=== PATIENT | female | born 1955 | race Caucasian/White ===

== ENCOUNTER → 2017-11-24 | Outpatient (CLI) | payer OTHER ==
[2017-11-24 19:56] LABS: Basophils % (A) 1 %; Eosinophils # (A) 0.1 k/uL (0-0.7); Eosinophils % (A) 2 %; HCT 44.6 % (34.0-46.0); HGB 13.8 gm/dL (11.4-16.0); Hypochromasia Slight; Lymphocytes # (A) 1.5 k/uL (1.0-4.8); Lymphocytes % (A) 21 %; MCV 96.6 fL (80.0-100.0); Mean Platelet Volume 8.5; Monocytes # (A) 0.4 k/uL (0-1.0); Monocytes % (A) 5 %; Neutrophils # (A) 5.1 k/uL (1.3-7.7); Neutrophils % (A) 71 %; Platelet Count 269 k/uL (150-450); RBC 4.62 m/uL (3.80-5.40); RDW 14.3 % (11.5-15.5); WBC 7.2 k/uL (3.8-10.6)
[2017-11-24 20:35] LABS: T4, Free (Free Thyroxine) 1.21 ng/dL (0.78-2.19)
[2017-11-24 20:50] LABS: ALT 29 U/L (9-52); AST 26 U/L (14-36); Albumin 4.3 g/dL (3.5-5.0); Alkaline Phosphatase 108 U/L (38-126); Anion Gap 12 mmol/L; Blood Urea Nitrogen 17 mg/dL (7-17); Calcium 9.8 mg/dL (8.4-10.2); Carbon Dioxide 29 mmol/L (22-30); Chloride 101 mmol/L (98-107); Cholesterol 168 mg/dL (<200); Creatine Kinase 56 U/L (30-135); Glucose 103 mg/dL (74-99); HDL Cholesterol 50 mg/dL (40-60); LDL Cholesterol,Calculated 104 mg/dL (0-99); Potassium 4.8 mmol/L (3.5-5.1); Sodium 142 mmol/L (137-145); Total Bilirubin 0.4 mg/dL (0.2-1.3); Total Protein 7.5 g/dL (6.3-8.2); Triglycerides 72 mg/dL (<150)
[2017-11-25 01:46] LABS: Vitamin D 25 Hydroxy 31.7 ng/mL (30.0-100.0)
== END | disposition home or self-care (01) ==
LOC: MMGSC 11:50
PROVIDERS: ATTEND Family Medicine
DX: E03.9 Hypothyroidism, unspecified (principal); I10 Essential (primary) hypertension; E78.5 Hyperlipidemia, unspecified; M79.1 Myalgia
CPT/HCPCS: 36415; 80053; 80061; 82306; 82550; 82607; 84439; 84443; 85025

== ENCOUNTER 2018-07-27 16:00 | Inpatient (IN) | payer OTHER ==
--- NOTE | 2018-07-27 15:48 | CT ---
EXAMINATION TYPE: CT abdomen pelvis w con DATE OF EXAM: 07/27/2018 COMPARISON: HISTORY: Right lower quadrant pain. CT DLP: 1580 mGycm CONTRAST: CT scan of the abdomen and pelvis is performed with Oral Contrast and with IV Contrast, patient injec charlee with 100 mL of Isovue M300. FINDINGS: LUNG BASES-: No visible nodule. No infiltrate. LIVER/GB: No calcified gallstones. No space occupying hepatic lesion. Biliary tree is of normal ca liber. PANCREAS: No inflammation. No distinct mass. SPLEEN: No splenic enlargement. No lesion seen. ADRENALS: No nodule. No thickening. KIDNEYS/BLADDER: No hydronephrosis. No nephrolithiasis. No distinct renal mass. Urinary bladder g rossly unremarkable. BOWEL: There is evidence of acute appendicitis with abscess formation within the right lower quadrant measuring approximately 6.4 x 6.2 cm. There is wall thickening of the adjacent ileal loops. Wall thi ckening and irregularity of the appendix noted. No evidence for free air at this time. GENITAL ORGANS: No gross abnormality. LYMPH NODES: No greater than 1cm abdominal or pelvic lymph nodes are appreciated. AORTA: No significant abnormality. OSSEOUS STRUCTURES: No significant abnormality is seen. OTHER: No significant additional abnormality is seen. IMPRESSION: 1. There is evidence of acute appendicitis with abscess formation within the right lower quadrant ephraim suring approximately 6.4 x 6.2 cm.
[2018-07-27] MEDS ORDERED: SODIUM CHLORIDE 0.9% 1,000 ML IV STA (16:20)
[2018-07-27] MEDS ORDERED: PIPERACILLIN-TAZOBACTAM 3.375 GM in DEXTROSE/WATER 1 50ML.BAG IVPB STA (16:20)
--- NOTE | 2018-07-27 16:25 | ED ---
General Adult HPI - General Chief complaint: Abdominal Pain Time Seen by Provider: 07/27/18 16:00 Source: patient, RN notes reviewed Mode of arrival: ambulatory Limitations: no limitations - History of Present Illness Initial comments: This is a 63-year-old female presents emergency department with 4 day history of abdominal pain patient states it started on Wednesday and continues getting worse. Patient states he was kind of diffuse along her lower abdomen now it's more localized in the right lower quadrant. Patient denies any nausea vomiting. Patient denies any diarrhea. Patient denies any fever chills. Patient denies any dysuria hematuria urinary frequency. Patient states she went to her doctor's today doctor ordered a CAT scan and she was sent to the hospital for the CAT scan after she was done I told she had acute appendicitis and he comes emergency Department. - Related Data Allergies Allergy/AdvReac Type Severity Reaction Status Date / Time No Known Allergies Allergy Verified 07/27/18 16:04 Review of Systems ROS Statement: Those systems with pertinent positive or pertinent negative responses have been documented in the HPI. ROS Other: All systems not noted in ROS Statement are negative. Past Medical History Past Medical History: Hypertension, Thyroid Disorder History of Any Multi-Drug Resistant Organisms: None Reported Past Surgical History: No Surgical Hx Reported Past Psychological History: Anxiety Smoking Status: Never smoker Past Alcohol Use History: None Reported Past Drug Use History: None Reported General Exam - General Exam Comments Initial Comments: GENERAL: Patient is well-developed and well-nourished. Patient is nontoxic and well- hydrated and is in mild distress. ENT: Neck is soft and supple. No significant lymphadenopathy is noted. Oropharynx is clear. Moist mucous membranes. Neck has full range of motion without eliciting any pain. EYES: The sclera were anicteric and conjunctiva were pink and moist. Extraocular movements were intact and pupils were equal round and reactive to light. Eyelids were unremarkable. PULMONARY: Unlabored respirations. Good breath sounds bilaterally. No audible rales rhonchi or wheezing was noted. CARDIOVASCULAR: There is a regular rate and rhythm without any murmurs gallops or rubs. ABDOMEN: Patient is right lower quadrant tenderness with rebound. No palpable organomegaly was noted. There is no palpable pulsatile mass. SKIN: Skin is clear with no lesions or rashes and otherwise unremarkable. NEUROLOGIC: Patient is alert and oriented x3. Cranial nerves II through XII are grossly intact. Motor and sensory are also intact. Normal speech, volume and content. Symmetrical smile. MUSCULOSKELETAL: Normal extremities with adequate strength and full range of motion. No lower extremity swelling or edema. No calf tenderness. LYMPHATICS: No significant lymphadenopathy is noted PSYCHIATRIC: Normal psychiatric evaluation. Limitations: no limitations Course Vital Signs 07/27/18 16:00 Temperature 97.6 F Pulse Rate 96 Respiratory 18 Rate Blood Pressure 106/67 O2 Sat by Pulse 95 Oximetry Medical Decision Making - Medical Decision Making CAT scan shows acute appendicitis with abscess formation. I spoke with Dr. Calhoun she wanted the patient admitted I admitted the patient I gave Zosyn in the emergency department continue Zosyn on the floor. EKG shows normal sinus rhythm at 87 bpm NM interval 266 dresses 88 QT interval 372 QTC is 447. Patient's EKG shows no ST segment elevation or depression or T wave abnormalities are noted. Disposition Clinical Impression: Acute appendicitis Disposition: ADMITTED IP TO THIS HOSP Referrals: Tyra Upton MD [Primary Care Provider] - 1-2 days Time of Disposition: 16:43
[2018-07-27] MEDS ORDERED: SODIUM CHLORIDE 0.9% 1,000 ML IV ONE (16:43)
[2018-07-27] MEDS ORDERED: ONDANSETRON 4 MG/2 ML VIAL IVP PRN (16:44)
[2018-07-27 17:01] LABS: Basophils # (A) 0.1 k/uL (0-0.2); Basophils % (A) 1 %; Eosinophils # (A) 0.1 k/uL (0-0.7); Eosinophils % (A) 0 %; HCT 40.2 % (34.0-46.0); HGB 13.1 gm/dL (11.4-16.0); Lymphocytes # (A) 1.3 k/uL (1.0-4.8); Lymphocytes % (A) 8 %; MCH 30.1 pg (25.0-35.0); MCHC 32.6 g/dL (31.0-37.0); MCV 92.1 fL (80.0-100.0); Mean Platelet Volume 6.5; Monocytes # (A) 0.8 k/uL (0-1.0); Monocytes % (A) 5 %; Neutrophils # (A) 13.5 k/uL (1.3-7.7); Neutrophils % (A) 84 %; Platelet Count 258 k/uL (150-450); RBC 4.37 m/uL (3.80-5.40); RDW 12.6 % (11.5-15.5); WBC 16.1 k/uL (3.8-10.6)
[2018-07-27 17:05] LABS: INR 1.1 (<1.2); Partial Thromboplastin Time 22.2 sec (22.0-30.0); Prothrombin Time 10.5 sec (9.0-12.0)
[2018-07-27 17:08] LABS: ALT 41 U/L (9-52); AST 32 U/L (14-36); Albumin 3.7 g/dL (3.5-5.0); Alkaline Phosphatase 99 U/L (38-126); Amylase 47 U/L (30-110); Anion Gap 13 mmol/L; Blood Urea Nitrogen 16 mg/dL (7-17); Calcium 8.9 mg/dL (8.4-10.2); Carbon Dioxide 31 mmol/L (22-30); Chloride 85 mmol/L (98-107); Glucose 105 mg/dL (74-99); Lipase 56 U/L (23-300); Potassium 3.7 mmol/L (3.5-5.1); Sodium 129 mmol/L (137-145); Total Bilirubin 0.8 mg/dL (0.2-1.3); Total Protein 6.8 g/dL (6.3-8.2)
[2018-07-27 17:17] LABS: Appearance,Urine Clear (Clear); Bilirubin,Urine Negative (Negative); Blood,Urine Negative (Negative); Color,Urine Colorless; Glucose,Urine (UA) Negative (Negative); Ketones,Urine Trace (Negative); Leukocyte Esterase,Urine Large (Negative); Nitrite,Urine Negative (Negative); Protein,Urine Negative (Negative); RBC,Urine 4 /hpf (0-5); Specific Gravity,Urine 1.031 (1.001-1.035); Squamous Epithelial Cell,Urine 1 /hpf (0-4); Urobilinogen,Urine <2.0 mg/dL (<2.0); WBC,Urine 28 /hpf (0-5)
[2018-07-27] MEDS ORDERED: NALOXONE 0.4 MG/ML 1 ML VIAL IV PRN (18:53)
[2018-07-27] MEDS ORDERED: ACETAMINOPHEN IV (For NPO) 1,000 MG in EMPTY BAG 1 BAG IVPB ONE (18:53)
[2018-07-27] MEDS ORDERED: HYDROcodone/APAP 5-325MG 1 EACH TAB PO PRN (18:53)
[2018-07-27] MEDS ORDERED: ENOXAPARIN 40 MG/0.4 ML SYRINGE SQ SCH (19:00)
[2018-07-27 19:06] VITALS: BMI 32.4
[2018-07-27] MEDS ORDERED: LORazepam 2 MG/ML INJ IV PRN (19:53)
--- NOTE | 2018-07-27 20:00 | P.GSHP ---
History of Present Illness H&P Date: 07/27/18 CHIEF COMPLAINT: Right lower quadrant abdominal pain with appendicitis for 5 days. HISTORY OF PRESENT ILLNESS: The patient is a previously healthy 63-year-old female who reported feeling ill 5 days ago after eating a piece brisket. She reports that the sharp aching pain started around the bellybutton and then radiated to the right lower quadrant. She delayed seeking care as she had a pending doctor's appointment for which she delayed her care at least 4 days following her abdominal pain. She reports the pain went from severe tube to relieved as of yesterday. She had lab work including studies obtained. With those findings she was sent to the emergency room and she was diagnosed with perforated appendicitis. Last colonoscopy was 3 years ago with a 10 year clean bill of [facility]. She denies any personal history of diverticulosis as well. She is comfortable. No reports of fevers or chill at this time. Her pain is tolerable. PAST MEDICAL HISTORY: See list. PAST SURGICAL HISTORY: See list. CURRENT MEDICATIONS: See list. ALLERGIES: See list. SOCIAL HISTORY: No illicit drug use FAMILY HISTORY: Denies Crohns disease and ulcerative colitis. REVIEW OF ORGAN SYSTEMS: CONSTITUTIONAL: Denies any fever or chills. Denies recent weight loss. HEENT: Denies any trouble with vision, hearing or nosebleeds. No difficulty swallowing. LYMPHATIC: The patient denies any lumps and bumps around the neck. ENDOCRINE: Has thyroid disorders. Denies any blood sugar glucose intolerance. RESPIRATORY: Denies shortness of breath including chronic cough. CARDIOVASCULAR: Denies history of chest pain with exertion. GASTROINTESTINAL: Denies regurgitation of bile at night as well as intermittent nausea. No blood in stools. Has gastroesophageal reflux disease GENITOURINARY: Denies any blood in urine or increased urinary frequency. Previous history of kidney stones.` MUSCULOSKELETAL: Denies current joint arthritis. NEUROLOGIC: Denies any numbness or tingling along the distal extremities. No seizure disorders or headaches. PSYCHIATRIC: Denies any depression or suicidal ideation. HEMATOLOGIC: Denies any abnormal bleeding or bruising. PHYSICAL EXAMINATION: GENERAL: Well developed and in no acute distress. Pleasant. HEENT: No sclera icterus. Extraocular movements grossly intact. Moist buccal mucosa. Head is atraumatic, normocephalic. Hears conversational speech. No nasal drainage. NECK: Supple without lymphadenopathy. No JV distention. CHEST: Non-labored respirations and equal bilateral excursions. CARDIOVASCULAR: Regular rate and rhythm. Palpable 2+ radial pulses. ABDOMEN: Soft, tender at the right lower quadrant. No peritonitis. No guarding. MUSCULOSKELETAL: No clubbing, cyanosis or edema. NEUROLOGIC: No focal or lateralizing signs. PSYCH: Appropriate affect. Alert and oriented to person, place and time. LABS: Reviewed STUDIES: CT of the abdomen and pelvis reviewed with findings consistent with large fluid collection along the right lower quadrant perforated appendicitis and phlegmon. ASSESSMENT: 1. Perforated appendicitis complicated 2. Peritoneal abscess right lower quadrant PLAN: 1. CT-guided drainage of large right lower quadrant peritoneal abscesses from appendiceal perforation. Should CT-guided drainage could not be feasible then we will need surgical drainage with delayed appendectomy described. 2. Bilateral SCDs. 3. Antibiotics. 4. DVT prophylaxis with heparin. 5. GI prophylaxis. 6. Full inpatient hospitalization anticipated beyond 3 days Past Medical History Past Medical History: Hypertension, Thyroid Disorder History of Any Multi-Drug Resistant Organisms: None Reported Past Surgical History: No Surgical Hx Reported Past Anesthesia/Blood Transfusion Reactions: Motion Sickness Additional Past Anesthesia/Blood Transfusion Reaction / Comment(s): no hx Past Psychological History: Anxiety Smoking Status: Never smoker Past Alcohol Use History: None Reported Past Drug Use History: None Reported - Past Family History Mother Additional Family Medical History / Comment(s): past away at 59yr of emphysema Father Additional Family Medical History / Comment(s): of etoh Medications and Allergies Home Medications Medication Instructions Recorded Confirmed Type ALPRAZolam [Xanax] 0.5 mg PO TID PRN 07/27/18 07/27/18 History Juice Plus 2 tab PO DAILY 07/27/18 07/27/18 History Levothyroxine Sodium [Synthroid] 50 mcg PO DAILY 07/27/18 07/27/18 History Lisinopril-Hctz 20-25 mg 1 tab PO DAILY 07/27/18 07/27/18 History [Zestoretic 20-25] Omeprazole 20 mg PO DAILY 07/27/18 07/27/18 History Allergies Allergy/AdvReac Type Severity Reaction Status Date / Time No Known Allergies Allergy Verified 07/27/18 18:37 Surgical - Exam Vital Signs Temp Pulse Resp BP Pulse Ox 97.6 F 96 18 106/67 95 07/27/18 16:00 07/27/18 16:00 07/27/18 16:00 07/27/18 16:00 07/27/18 16:00 Results - Labs 07/27/18 16:47 07/27/18 16:47 Abnormal Lab Results - Last 24 Hours (Table) 07/27/18 07/27/18 07/27/18 Range/Units 16:47 16:47 16:54 WBC 16.1 H (3.8-10.6) k/uL Neutrophils # 13.5 H (1.3-7.7) k/uL Sodium 129 L (137-145) mmol/L Chloride 85 L (98-107) mmol/L Carbon Dioxide 31 H (22-30) mmol/L Glucose 105 H (74-99) mg/dL Urine Ketones Trace H (Negative) Ur Leukocyte Esterase Large H (Negative) Urine WBC 28 H (0-5) /hpf Diabetes panel 07/27/18 Range/Units 16:47 Sodium 129 L (137-145) mmol/L Potassium 3.7 (3.5-5.1) mmol/L Chloride 85 L (98-107) mmol/L Carbon Dioxide 31 H (22-30) mmol/L BUN 16 (7-17) mg/dL Creatinine 0.62 (0.52-1.04) mg/dL Glucose 105 H (74-99) mg/dL Calcium 8.9 (8.4-10.2) mg/dL AST 32 (14-36) U/L ALT 41 (9-52) U/L Alkaline Phosphatase 99 (38-126) U/L Total Protein 6.8 (6.3-8.2) g/dL Albumin 3.7 (3.5-5.0) g/dL Calcium panel 07/27/18 Range/Units 16:47 Calcium 8.9 (8.4-10.2) mg/dL Albumin 3.7 (3.5-5.0) g/dL Pituitary panel 07/27/18 Range/Units 16:47 Sodium 129 L (137-145) mmol/L Potassium 3.7 (3.5-5.1) mmol/L Chloride 85 L (98-107) mmol/L Carbon Dioxide 31 H (22-30) mmol/L BUN 16 (7-17) mg/dL Creatinine 0.62 (0.52-1.04) mg/dL Glucose 105 H (74-99) mg/dL Calcium 8.9 (8.4-10.2) mg/dL Adrenal panel 07/27/18 Range/Units 16:47 Sodium 129 L (137-145) mmol/L Potassium 3.7 (3.5-5.1) mmol/L Chloride 85 L (98-107) mmol/L Carbon Dioxide 31 H (22-30) mmol/L BUN 16 (7-17) mg/dL Creatinine 0.62 (0.52-1.04) mg/dL Glucose 105 H (74-99) mg/dL Calcium 8.9 (8.4-10.2) mg/dL Total Bilirubin 0.8 (0.2-1.3) mg/dL AST 32 (14-36) U/L ALT 41 (9-52) U/L Alkaline Phosphatase 99 (38-126) U/L Total Protein 6.8 (6.3-8.2) g/dL Albumin 3.7 (3.5-5.0) g/dL
[2018-07-27] MEDS: metroNIDAZOLE-NS PMX 500 MG in SALINE 1 100ML.BAG IVPB SCH (21:11)
[2018-07-27] MEDS: HEPARIN SODIUM,PORCINE 5,000 UNIT/ML 1 ML VIAL SQ SCH (21:13)
[2018-07-27] MEDS: SODIUM CHLORIDE 0.9% 1,000 ML IV SCH (21:13)
[2018-07-27] MEDS: FAMOTIDINE 20 MG TAB PO SCH (21:21)
[2018-07-28] MEDS: PIPERACILLIN-TAZOBACTAM 3.375 GM in DEXTROSE/WATER 1 50ML.BAG IVPB SCH ×3 (00:10→16:29)
[2018-07-28] MEDS: metroNIDAZOLE-NS PMX 500 MG in SALINE 1 100ML.BAG IVPB SCH ×5 (02:10→23:49)
[2018-07-28] MEDS: LEVOTHYROXINE 50 MCG TAB PO SCH (06:40)
[2018-07-28] MEDS: SODIUM CHLORIDE 0.9% 1,000 ML IV SCH ×2 (06:40→21:14)
[2018-07-28] MEDS: KETOROLAC 30 MG/ML 1 ML VIAL IVP PRN ×2 (07:17→18:02)
[2018-07-28 07:45] LABS: Basophils # (A) 0.1 k/uL (0-0.2); Basophils % (A) 0 %; Eosinophils # (A) 0.1 k/uL (0-0.7); Eosinophils % (A) 1 %; HGB 11.3 gm/dL (11.4-16.0); Lymphocytes # (A) 1.2 k/uL (1.0-4.8); Lymphocytes % (A) 9 %; MCH 29.6 pg (25.0-35.0); MCHC 31.5 g/dL (31.0-37.0); MCV 93.8 fL (80.0-100.0); Mean Platelet Volume 6.3; Monocytes # (A) 0.6 k/uL (0-1.0); Monocytes % (A) 4 %; Neutrophils % (A) 81 %; Platelet Count 269 k/uL (150-450); RBC 3.84 m/uL (3.80-5.40); RDW 12.8 % (11.5-15.5); WBC 12.3 k/uL (3.8-10.6)
[2018-07-28 08:00] LABS: Anion Gap 7 mmol/L; Blood Urea Nitrogen 10 mg/dL (7-17); Calcium 8.3 mg/dL (8.4-10.2); Carbon Dioxide 33 mmol/L (22-30); Chloride 97 mmol/L (98-107); Glucose 102 mg/dL (74-99); Potassium 3.9 mmol/L (3.5-5.1); Sodium 137 mmol/L (137-145)
[2018-07-28] MEDS: LISINOPRIL-HCTZ 20-25 MG 1 EACH TAB PO SCH (08:59)
[2018-07-28] MEDS: FAMOTIDINE 20 MG TAB PO SCH ×2 (09:00→21:09)
[2018-07-28] MEDS: HEPARIN SODIUM,PORCINE 5,000 UNIT/ML 1 ML VIAL SQ SCH ×2 (09:03→21:09)
[2018-07-28] MEDS ORDERED: ACETAMINOPHEN IV (For NPO) 1,000 MG in EMPTY BAG 1 BAG IVPB ONE (10:49)
[2018-07-28] MEDS ORDERED: ALPRAZolam 0.5 MG TAB PO PRN (10:51)
--- NOTE | 2018-07-28 11:43 | P.PN ---
Subjective Progress Note Date: 07/28/18 62-year-old female sitting up in bed is scheduled today by interventional radiology to place a drain for a large fluid collection along the right lower quadrant due to perforated appendicitis and phlegom. Patient continues to report having right lower quadrant abdominal discomfort. Patient was seen in the emergency room after experiencing a four-day history of abdominal pain started on Wednesday. Patient stated he became more symptomatic. Patient stated was across the lower abdomen localizing itself to the right lower quadrant. States felt nauseated had no appetite . In the emergency room the white count was 16.1 heart rate in the 80s to 90s low-grade temp of 99.1 CAT scan of the abdomen pelvis with contrast reviewing the report showed evidence of an acute appendicitis with abscess formation in the right lower quadrant measuring 6 x 6 cm. No evidence for free air Objective - Vital Signs Vital signs: Vital Signs Temp 98.3 F 07/28/18 08:54 Pulse 78 07/28/18 08:54 Resp 16 07/28/18 08:54 BP 101/67 07/28/18 08:54 Pulse Ox 93 L 07/28/18 08:54 Intake & Output 07/27/18 07/28/18 07/28/18 18:59 06:59 18:59 Output Total 600 Balance -600 Weight 83 kg Output: Urine 600 Other: Voiding Method Toilet # Voids 1 - Exam Physical exam 63-year-old female sitting up in bed states continues to have diffuse lower abdominal pain radiates to the right quadrant Lungs adequate air movement bilaterally Heart S1-S2 audible regular Abdomen diffuse tenderness right lower quadrant radiating across the abdominal wall soft not distended with active bowel tones no nausea no vomiting Extremities no edema - Labs CBC & Chem 7: 07/28/18 07:24 07/28/18 07:24 Labs: Abnormal Lab Results - Last 24 Hours (Table) 07/27/18 07/27/18 07/27/18 Range/Units 16:47 16:47 16:54 WBC 16.1 H (3.8-10.6) k/uL Hgb (11.4-16.0) gm/dL Neutrophils # 13.5 H (1.3-7.7) k/uL Sodium 129 L (137-145) mmol/L Chloride 85 L (98-107) mmol/L Carbon Dioxide 31 H (22-30) mmol/L Glucose 105 H (74-99) mg/dL Calcium (8.4-10.2) mg/dL Urine Ketones Trace H (Negative) Ur Leukocyte Esterase Large H (Negative) Urine WBC 28 H (0-5) /hpf 07/28/18 07/28/18 Range/Units 07:24 07:24 WBC 12.3 H (3.8-10.6) k/uL Hgb 11.3 L (11.4-16.0) gm/dL Neutrophils # 10.0 H (1.3-7.7) k/uL Sodium (137-145) mmol/L Chloride 97 L (98-107) mmol/L Carbon Dioxide 33 H (22-30) mmol/L Glucose 102 H (74-99) mg/dL Calcium 8.3 L (8.4-10.2) mg/dL Urine Ketones (Negative) Ur Leukocyte Esterase (Negative) Urine WBC (0-5) /hpf Assessment and Plan Assessment: Impression Present on admission right upper quadrant abdominal pain suspect due to perforated appendicitis with phlegmon CAT scan abdomen and pelvis obtained on admission report reviewed consistent with large fluid collection along the right lower quadrant perforated appendicitis and phlegmon Perforated appendicitis complicated Peritoneal abscess right lower quadrant Leukocytosis present on admission suspect due to acute appendicitis Plan Interventional radiology to evaluate placing drain the abscess as described Pain control IV antibiotics as ordered Efraín and Valeriy Repeat labs in the morning DVT and GI prophylaxis Should CT-guided drainage not be feasible will need surgical drainage with delayed appendectomy DVT and GI prophylaxis
--- NOTE | 2018-07-28 13:55 | CT ---
"EXAMINATION TYPE: CT discontinued procedure DATE OF EXAM: 07/28/2018 COMPARISON: Prior CT 07/27/2018 HISTORY: Abdominal abscess CT DLP: 496 mGycm Automated exposure control for dose reduction was used. Scanning performed through the abdomen and pelvis for planning purposes FINDINGS: The previously identified localized fluid collection has dissipated. There is abnormal thickening of bowel wall. Contrast material has extended outside of the lumen is present along bowel loops. There i s free fluid within the pelvis and mesentery. Inflammatory changes are present. Difficult to exclude fistula formation. IMPRESSION: LOCALIZED ABSCESS IS NO LONGER EVIDENT. THERE IS FREE FLUID AND FREE CONTRAST WITHIN THE MESENTERY. B OWEL WALL THICKENING COMPATIBLE WITH LOCAL INFLAMMATORY CHANGE, DIFFICULT TO EXCLUDE FISTULA. A Red level critical message alert has been initiated for Graciela Rich MD via the [employer] | Critical Results System on 07/28/2018 1:53 PM. This message alert has been sent to Graciela beltran MD via the preferences provided by the clinician for the receipt of Radiology Critical Findings . Message ID [id number]."
[2018-07-28 19:30] VITALS: RESP 16
[2018-07-29] MEDS: PIPERACILLIN-TAZOBACTAM 3.375 GM in DEXTROSE/WATER 1 50ML.BAG IVPB SCH ×2 (01:04→07:41)
[2018-07-29] MEDS: metroNIDAZOLE-NS PMX 500 MG in SALINE 1 100ML.BAG IVPB SCH ×2 (06:04→11:46)
[2018-07-29] MEDS: LEVOTHYROXINE 50 MCG TAB PO SCH (06:04)
[2018-07-29 06:33] LABS: Basophils # (A) 0.1 k/uL (0-0.2); Basophils % (A) 1 %; Eosinophils # (A) 0.3 k/uL (0-0.7); Eosinophils % (A) 3 %; HGB 11.2 gm/dL (11.4-16.0); Lymphocytes # (A) 1.5 k/uL (1.0-4.8); Lymphocytes % (A) 16 %; MCHC 31.2 g/dL (31.0-37.0); MCV 96.2 fL (80.0-100.0); Mean Platelet Volume 6.5; Monocytes # (A) 0.3 k/uL (0-1.0); Monocytes % (A) 3 %; Neutrophils # (A) 6.7 k/uL (1.3-7.7); Neutrophils % (A) 73 %; Platelet Count 255 k/uL (150-450); RBC 3.74 m/uL (3.80-5.40); RDW 12.7 % (11.5-15.5); WBC 9.3 k/uL (3.8-10.6)
[2018-07-29 06:41] LABS: Anion Gap 6 mmol/L; Blood Urea Nitrogen 9 mg/dL (7-17); Calcium 8.3 mg/dL (8.4-10.2); Carbon Dioxide 31 mmol/L (22-30); Chloride 101 mmol/L (98-107); Glucose 129 mg/dL (74-99); Potassium 3.6 mmol/L (3.5-5.1); Sodium 138 mmol/L (137-145)
[2018-07-29] MEDS: FAMOTIDINE 20 MG TAB PO SCH (09:00)
[2018-07-29] MEDS: LISINOPRIL-HCTZ 20-25 MG 1 EACH TAB PO SCH (09:01)
[2018-07-29] MEDS: HEPARIN SODIUM,PORCINE 5,000 UNIT/ML 1 ML VIAL SQ SCH (09:02)
--- NOTE | 2018-07-29 09:59 | P.CONS ---
History of Present Illness - Reason for Consult Consult date: 07/29/18 Antibiotic recommendations - History of Present Illness This is a 63-year-old female patient gives history that on Wednesday she was having some discomfort around her belly button and occasional sharp pain but it wasn't anything that worried her at the time. On Wednesday her whole abdomen was painful like gas pains. She had canceled her plans for the day and ended up staying in bed. The pain then shifted from right side the left side and also to the suprapubic area and continued to move around. She felt like she was constipated and had not had a bowel movement but took a laxative on Wednesday. On Wednesday she had what she thought was a doctor's appointment but she had blood work done and on Wednesday she was told her white count was quite high and they were concerned about appendix and she was sent into [facility] for evaluation with CAT scan. Initial CAT scan showed acute appendicitis with abscess in the right lower quadrant 6.4 x 6.2 cm she was started on Zosyn and Flagyl and admitted to the hospital for care of Dr. Mckinney. Her initial white count was 16.1 with improvement in 9.3, creatinine 0.73, lactic acid 1.1. Amylase and lipase, liver function tests all within normal limits. Urinalysis showed large leukoesterase and WBCs 28 with no urinary symptoms. Blood cultures no growth after 24 hours. Patient has been afebrile since admission. She was ordered for a CT drainage on July [address] was unable to find the abscess which seemed to of dissipated. There is local inflammatory changes and difficult to exclude fistula. There is free air in the pelvis and mesentery. Patient states she has been on a full liquid diet but has no appetite but no nausea or vomiting. She tried to eat some yogurt this morning but she doesn't like yogurt anyway. She still feels that she is constipated but are having small "squirts"of liquid stools. At this time, abdominal pain has resolved. Review of Systems All systems: negative Constitutional: Reports fatigue, Reports lethargy, Reports malaise, Reports poor appetite, Denies chills, Denies fever Eyes: denies blurred vision, denies pain Ears, nose, mouth and throat: Denies headache, Denies sore throat, Denies vertigo Cardiovascular: Denies chest pain, Denies decreased exercise tolerance, Denies dyspnea on exertion, Denies edema, Denies leg edema, Denies lightheadedness, Denies palpitations, Denies shortness of breath, Denies syncope Respiratory: Denies congestion, Denies cough, Denies cough with sputum, Denies dyspnea, Denies excessive sputum, Denies hemoptysis, Denies home oxygen, Denies wheezing Gastrointestinal: Reports diarrhea, Reports loss of appetite, Denies abdominal pain, Denies nausea, Denies vomiting Genitourinary: Denies dysuria, Denies hematuria, Denies urgency, Denies urinary frequency Musculoskeletal: Denies myalgias Integumentary: Denies pruritus, Denies rash Neurological: Denies numbness, Denies weakness Psychiatric: Denies anxiety, Denies depression Endocrine: Denies fatigue, Denies weight change Past Medical History Past Medical History: Hypertension, Thyroid Disorder History of Any Multi-Drug Resistant Organisms: None Reported Past Surgical History: No Surgical Hx Reported Past Anesthesia/Blood Transfusion Reactions: Motion Sickness Additional Past Anesthesia/Blood Transfusion Reaction / Comm: no hx Past Psychological History: Anxiety Smoking Status: Never smoker Past Alcohol Use History: None Reported Additional Past Alcohol Use History / Comment(s): Patient smoked briefly when she was young. She uses marijuana rarely. 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 She does have animal exposures with dog and cats. She has a daughter that has taken horses and pigs that were previously hers and she's had no recent exposure. She owns a home in [place] and also in [facility]. Past Drug Use History: None Reported - Past Family History Mother Additional Family Medical History / Comment(s): past away at 59yr of emphysema Father Additional Family Medical History / Comment(s): of etoh Medications and Allergies Home Medications Medication Instructions Recorded Confirmed Type ALPRAZolam [Xanax] 0.5 mg PO TID PRN 07/27/18 07/27/18 History Juice Plus 2 tab PO DAILY 07/27/18 07/27/18 History Levothyroxine Sodium [Synthroid] 50 mcg PO DAILY 07/27/18 07/27/18 History Lisinopril-Hctz 20-25 mg 1 tab PO DAILY 07/27/18 07/27/18 History [Zestoretic 20-25] Omeprazole 20 mg PO DAILY 07/27/18 07/27/18 History Allergies Allergy/AdvReac Type Severity Reaction Status Date / Time No Known Allergies Allergy Verified 07/27/18 18:37 Physical Exam Vitals: Vital Signs Temp Pulse Resp BP BP Pulse Ox 07/29/18 07:54 97.6 F 66 16 122/75 96 07/28/18 23:47 66 16 07/28/18 21:55 98.3 F 66 16 109/64 95 07/28/18 19:35 97.8 F 71 16 117/70 97 07/28/18 19:26 16 07/28/18 15:15 98.3 F 81 12 123/73 96 07/28/18 13:50 97.7 F 73 14 112/68 94 L 07/28/18 13:10 70 16 112/65 91 L Intake and Output 07/28/18 07/29/18 07/29/18 22:59 06:59 14:59 Intake Total 80 40 Balance 80 40 Intake: Oral 80 40 Other: Voiding Method Toilet Toilet # Voids 2 1 1 Gen: This is a 63-year-old female. She is sitting up in bed and appears to be comfortable and in no acute distress. She is taking small bites of yogurt. HEENT: Head is atraumatic, normocephalic. Pupils equal, round. Sclerae is anicteric. Conjunctiva pink. Mucous members of the mouth are slightly dry. No thrush or lesions noted. Dentition is in good order. NECK: Supple. No JVD. No lymphadenopathy. No thyromegaly. LUNGS: Clear to auscultation. No wheezes or rhonchi. No intercostal retractions. HEART: Regular rate and rhythm. No murmur. ABDOMEN: Soft. Bowel sounds are present. No masses. No tenderness. No guarding or rigidity. EXTREMITIES: No pedal edema. No calf tenderness. Dorsalis pedis 1+ bilaterally. NEUROLOGICAL: Patient is awake, alert and oriented x3. Cranial nerves 2 through 12 are grossly intact. Results Results: Laboratory Results WBC 9.3 k/uL (3.8-10.6) 07/29/18 06:04 RBC 3.74 m/uL (3.80-5.40) L 07/29/18 06:04 Hgb 11.2 gm/dL (11.4-16.0) L 07/29/18 06:04 Hct 36.0 % (34.0-46.0) 07/29/18 06:04 MCV 96.2 fL (80.0-100.0) 07/29/18 06:04 MCH 30.0 pg (25.0-35.0) 07/29/18 06:04 MCHC 31.2 g/dL (31.0-37.0) 07/29/18 06:04 RDW 12.7 % (11.5-15.5) 07/29/18 06:04 Plt Count 255 k/uL (150-450) 07/29/18 06:04 Neutrophils % 73 % 07/29/18 06:04 Lymphocytes % 16 % 07/29/18 06:04 Monocytes % 3 % 07/29/18 06:04 Eosinophils % 3 % 07/29/18 06:04 Basophils % 1 % 07/29/18 06:04 Neutrophils # 6.7 k/uL (1.3-7.7) 07/29/18 06:04 Lymphocytes # 1.5 k/uL (1.0-4.8) 07/29/18 06:04 Monocytes # 0.3 k/uL (0-1.0) 07/29/18 06:04 Eosinophils # 0.3 k/uL (0-0.7) 07/29/18 06:04 Basophils # 0.1 k/uL (0-0.2) 07/29/18 06:04 PT 10.5 sec (9.0-12.0) 07/27/18 16:47 INR 1.1 (<1.2) 07/27/18 16:47 APTT 22.2 sec (22.0-30.0) 07/27/18 16:47 Sodium 138 mmol/L (137-145) 07/29/18 06:04 Potassium 3.6 mmol/L (3.5-5.1) 07/29/18 06:04 Chloride 101 mmol/L (98-107) 07/29/18 06:04 Carbon Dioxide 31 mmol/L (22-30) H 07/29/18 06:04 Anion Gap 6 mmol/L 07/29/18 06:04 BUN 9 mg/dL (7-17) 07/29/18 06:04 Creatinine 0.73 mg/dL (0.52-1.04) 07/29/18 06:04 Est GFR (CKD-EPI)AfAm >90 (>60 ml/min/1.73 sqM) 07/29/18 06:04 Est GFR (CKD-EPI)NonAf 88 (>60 ml/min/1.73 sqM) 07/29/18 06:04 Glucose 129 mg/dL (74-99) H 07/29/18 06:04 Plasma Lactic Acid Justin 1.1 mmol/L (0.7-2.0) 07/27/18 16:47 Calcium 8.3 mg/dL (8.4-10.2) L 07/29/18 06:04 Total Bilirubin 0.8 mg/dL (0.2-1.3) 07/27/18 16:47 AST 32 U/L (14-36) 07/27/18 16:47 ALT 41 U/L (9-52) 07/27/18 16:47 Alkaline Phosphatase 99 U/L (38-126) 07/27/18 16:47 Total Protein 6.8 g/dL (6.3-8.2) 07/27/18 16:47 Albumin 3.7 g/dL (3.5-5.0) 07/27/18 16:47 Amylase 47 U/L (30-110) 07/27/18 16:47 Lipase 56 U/L (23-300) 07/27/18 16:47 Urine Color Colorless 07/27/18 16:54 Urine Appearance Clear (Clear) 07/27/18 16:54 Urine pH 6.0 (5.0-8.0) 07/27/18 16:54 Ur Specific [place] 1.031 (1.001-1.035) 07/27/18 16:54 Urine Protein Negative (Negative) 07/27/18 16:54 Urine Glucose (UA) Negative (Negative) 07/27/18 16:54 Urine Ketones Trace (Negative) H 07/27/18 16:54 Urine Blood Negative (Negative) 07/27/18 16:54 Urine Nitrite Negative (Negative) 07/27/18 16:54 Urine Bilirubin Negative (Negative) 07/27/18 16:54 Urine Urobilinogen <2.0 mg/dL (<2.0) 07/27/18 16:54 Ur Leukocyte Esterase Large (Negative) H 07/27/18 16:54 Urine RBC 4 /hpf (0-5) 07/27/18 16:54 Urine WBC 28 /hpf (0-5) H 07/27/18 16:54 Ur Squamous Epith Cells 1 /hpf (0-4) 07/27/18 16:54 CBC & Chem 7: 07/29/18 06:04 07/29/18 06:04 Labs: Abnormal Lab Results - Last 24 Hours (Table) 07/29/18 07/29/18 Range/Units 06:04 06:04 RBC 3.74 L (3.80-5.40) m/uL Hgb 11.2 L (11.4-16.0) gm/dL Carbon Dioxide 31 H (22-30) mmol/L Glucose 129 H (74-99) mg/dL Calcium 8.3 L (8.4-10.2) mg/dL Microbiology - Last 24 Hours (Table) 07/27/18 16:11 Blood Culture - Preliminary Blood No Growth after 24 hours Assessment and Plan Plan: This is a 63-year-old female who presented to the hospital with appendicitis and abscess. Upon repeat CAT scan the abscess has dissipated and no drainage was done. Patient's pain has resolved. She continues to have very little appetite. She has been treated with Zosyn and Flagyl. Dr. Cherry is planning to bring her back in for appendectomy at a later date. Blood culture showing no growth after 24 hours. Antibiotics for home will be addressed. Continue supportive care. Further recommendations as patient progresses. The above dictated assessment and findings were discussed with Dr. Bowser. The impression and plan of care have been directed as dictated. Racquel Gee nurse practitioner acting as scribe for Dr. Bowser.
[2018-07-29 12:11] VITALS: BP 137/72; PULSE 76; TEMP 97.2
--- NOTE | 2018-07-29 12:55 | P.DS ---
Providers Date of admission: 07/27/18 16:44 Expected date of discharge: 07/29/18 Attending physician: Graciela Rich Consults: 07/28/18 11:51 Consult Physician Urgent Consulting Provider: Dwayne Bowser Reason/Comments: Antibiotic recommendations Do you want consulting provider notified?: Yes Primary care physician: [facility] Course: 62-year-old female who presented to the emergency room after reportedly experiencing right lower quadrant pain onset 5 days prior stated had been getting more symptomatic. Patient described it as sharp aching pain started around the bellybutton radiated to the right lower quadrant. Patient stated that the abdominal pain would come and go but it became so severe on the day of admission to the emergency room. Patient stated that she did notify her PCP had lab work daughter was told to come to the emergency room was diagnosed with a perforated appendicitis. Has no personal history of diverticulosis. In the emergency room white count 16 temp was 99 heart rate in the 90s Patient was set up for interventional radiology to drain the abscess on the 28 of July. Report indicate localized abscess was no longer evident. There was free air within the mesentery bowel at that time interventional radiology indicated drainage of the the abscess not indicated . Patient was on IV antibiotics with Efraín and Valeriy Bowser infectious disease consultation was obtained recommendations noted for antibiotics at the time of discharge CAT scan of the abdomen pelvis with contrast reviewing the report showed evidence of an acute appendicitis with abscess formation in the right lower quadrant measuring 6 x 6 cm. No evidence for free air On the day of discharge patient was up ambulatory on the unit the white count was down to 9.3 patient was afebrile tolerating a diet abdomen was soft patient was anxious to be discharged Impression discharge diagnosis Localized abscess no longer evident on a repeat computed tomography scan 28 of July per interventional radiology Present on admission right upper quadrant abdominal pain suspect due to perforated appendicitis with phlegmon CAT scan abdomen and pelvis obtained on admission report reviewed consistent with large fluid collection along the right lower quadrant perforated appendicitis and phlegmon Perforated appendicitis complicated Peritoneal abscess right lower quadrant Leukocytosis present on admission suspect due to acute appendicitis The above impression and plan of care have been discussed and directed by signing physician. Irina Morrissey nurse practitioner acting as scribe for signing physician. Plan - Discharge Summary Discharge Rx Participant: No New Discharge Prescriptions: New Amoxicillin/Potassium Clav [Augmentin 875-125 Tablet] 1 each PO Q12HR #28 tab Continue Omeprazole 20 mg PO DAILY Lisinopril-Hctz 20-25 mg [Zestoretic 20-25] 1 tab PO DAILY Levothyroxine Sodium [Synthroid] 50 mcg PO DAILY ALPRAZolam [Xanax] 0.5 mg PO TID PRN PRN Reason: Anxiety Discontinued Juice Plus 2 tab PO DAILY Discharge Medication List ALPRAZolam [Xanax] 0.5 mg PO TID PRN 07/27/18 [History] Levothyroxine Sodium [Synthroid] 50 mcg PO DAILY 07/27/18 [History] Lisinopril-Hctz 20-25 mg [Zestoretic 20-25] 1 tab PO DAILY 07/27/18 [History] Omeprazole 20 mg PO DAILY 07/27/18 [History] Amoxicillin/Potassium Clav [Augmentin 875-125 Tablet] 1 each PO Q12HR #28 tab [Rx] Follow up Appointment(s)/Referral(s): Graciela Rich MD [STAFF PHYSICIAN] - 08/08/18 1:45 pm Tyra Upton MD [Primary Care Provider] - 1-2 days Patient Instructions/Handouts: Appendicitis (GEN), Soft Diet (DC) Activity/Diet/Wound Care/Special Instructions: Soft diet as tolerated, drink fluids. No lifting over 20 pounds in 1 week. Call office or return to Emergency Room for worsening abdominal pain, fevers, or chills. Discharge Disposition: HOME SELF-CARE
--- NOTE | 2018-07-29 16:48 | P.CON ---
Consult Note - . Consult date: 07/29/18 Assessment/Plan:: This is a 63-year-old female patient gives history that on Wednesday she was having some discomfort around her belly button and occasional sharp pain but it wasn't anything that worried her at the time. On Wednesday her whole abdomen was painful like gas pains. She had canceled her plans for the day and ended up staying in bed. The pain then shifted from right side the left side and also to the suprapubic area and continued to move around. She felt like she was constipated and had not had a bowel movement but took a laxative on Wednesday. On Wednesday she had what she thought was a doctor's appointment but she had blood work done and on Wednesday she was told her white count was quite high and they were concerned about appendix and she was sent into [facility] for evaluation with CAT scan. Initial CAT scan showed acute appendicitis with abscess in the right lower quadrant 6.4 x 6.2 cm she was started on Zosyn and Flagyl and admitted to the hospital for care of Dr. Mckinney. Her initial white count was 16.1 with improvement in 9.3, creatinine 0.73, lactic acid 1.1. Amylase and lipase, liver function tests all within normal limits. Urinalysis showed large leukoesterase and WBCs 28 with no urinary symptoms. Blood cultures no growth after 24 hours. Patient has been afebrile since admission. She was ordered for a CT drainage on July [address] was unable to find the abscess which seemed to of dissipated. There is local inflammatory changes and difficult to exclude fistula. There is free air in the pelvis and mesentery. Patient states she has been on a full liquid diet but has no appetite but no nausea or vomiting. She tried to eat some yogurt this morning but she doesn't like yogurt anyway. She still feels that she is constipated but are having small "squirts"of liquid stools. At this time, abdominal pain has resolved. Please consult note dictated by nurse practitioner Racquel Rawlsandreas. Pleasant woman who is now considerably improved at this point in time she's had resolution of her abdominal pain. The leukocytosis is improved and she is afebrile. CT finding as above. She will utilize a diet at discharge as per the surgeon. Antibiotic therapy with Augmentin is to be utilized at home she' ll follow up with the surgeon for the scheduled delayed appendectomy. No supra present back to the emergency center if she has any marked increase of her pain or develops fevers. I agree with evaluation, assessment and plan as dictated by nurse practitioner Mrs. Racquel Gee.
== END 2018-07-29 15:47 | disposition home or self-care (01) | DRG 373 ==
LOC: EC 16:00 → 6PED 16:44
PROVIDERS: ADMIT Surgery Plastic and Reconstructive Surgery; ATTEND Surgery Plastic and Reconstructive Surgery
DX: K35.3 Acute appendicitis with localized peritonitis (principal); F41.9 Anxiety disorder, unspecified; I10 Essential (primary) hypertension; E07.9 Disorder of thyroid, unspecified; Z79.890 Hormone replacement therapy; Z79.899 Other long term (current) drug therapy; Z82.5 Family history of asthma and other chronic lower respiratory diseases; Z81.1 Family history of alcohol abuse and dependence
CPT/HCPCS: 36415; 74177; 76380; 80048; 80053; 81001; 82150; 83605; 83690; 85025; 85610; 85730; 87040; 93005; 96360; 99285

== ENCOUNTER → 2018-08-12 | Outpatient (CLI) | payer OTHER ==
[2018-08-12 10:46] LABS: HCT 41.7 % (34.0-46.0); HGB 13.4 gm/dL (11.4-16.0); MCH 30.4 pg (25.0-35.0); MCHC 32.1 g/dL (31.0-37.0); MCV 94.6 fL (80.0-100.0); Mean Platelet Volume 6.6; Platelet Count 327 k/uL (150-450); RBC 4.41 m/uL (3.80-5.40); RDW 13.2 % (11.5-15.5); WBC 7.2 k/uL (3.8-10.6)
[2018-08-12 10:55] LABS: ALT 30 U/L (9-52); AST 23 U/L (14-36); Albumin 4.1 g/dL (3.5-5.0); Alkaline Phosphatase 85 U/L (38-126); Anion Gap 7 mmol/L; Blood Urea Nitrogen 18 mg/dL (7-17); Calcium 9.8 mg/dL (8.4-10.2); Carbon Dioxide 34 mmol/L (22-30); Chloride 98 mmol/L (98-107); Glucose 110 mg/dL (74-99); Potassium 4.5 mmol/L (3.5-5.1); Sodium 139 mmol/L (137-145); Total Bilirubin 0.6 mg/dL (0.2-1.3); Total Protein 7.5 g/dL (6.3-8.2)
--- NOTE | 2018-08-12 12:04 | CT ---
EXAMINATION TYPE: CT abdomen pelvis w con DATE OF EXAM: 08/12/2018 COMPARISON: 07/27/2018 HISTORY: Appendicitis CT DLP: 1685 mGycm CONTRAST: CT scan of the abdomen and pelvis is performed with Oral Contrast and with IV Contrast, patient injec charlee with 100 mL of Isovue 300. FINDINGS: LUNG BASES-: No visible nodule. No infiltrate. LIVER/GB: There is mild fatty liver. Small hiatal hernia noted. No calcified gallstones. No space o ccupying hepatic lesion. Biliary tree is of normal caliber. PANCREAS: No inflammation. No distinct mass. SPLEEN: No splenic enlargement. No lesion seen. ADRENALS: No nodule. No thickening. KIDNEYS/BLADDER: No hydronephrosis. No nephrolithiasis. No distinct renal mass. Urinary bladder g rossly unremarkable. BOWEL: Persistent inflammatory change right lower quadrant although much improved from prior study. P reviously noted abscess has a virtually entirely resolved. There is a tiny focus of air noted at the prior abscess site. No new abscess identified. Small and large bowel are of normal caliber. GENITAL ORGANS: No gross abnormality. LYMPH NODES: No greater than 1cm abdominal or pelvic lymph nodes are appreciated. AORTA: No significant abnormality. OSSEOUS STRUCTURES: No significant abnormality is seen. OTHER: No significant additional abnormality is seen. IMPRESSION: 1. Persistent inflammatory change right lower quadrant although much improved from prior study. Previ ously noted abscess has a virtually entirely resolved. There is a tiny focus of air noted at the prio r abscess site. No new abscess identified.
== END | disposition home or self-care (01) ==
LOC: RADCTMAIN 09:50
PROVIDERS: ATTEND Surgery Plastic and Reconstructive Surgery
DX: K29.70 Gastritis, unspecified, without bleeding (principal)
CPT/HCPCS: 80053; 85027; 74177; 36415; Q9967

== ENCOUNTER → 2018-09-06 | Outpatient (CLI) | payer OTHER ==
--- NOTE | 2018-09-06 13:43 | CT ---
EXAMINATION TYPE: CT abdomen pelvis w con DATE OF EXAM: 09/06/2018 COMPARISON: 08/04/2018 HISTORY: 63-year-old female peritoneal abscess, Pre OP Appendix removal TECHNIQUE: Contiguous axial scanning of the abdomen and pelvis following administration of 100 ml Iso louisa 300 IV contrast. Delayed images through the kidneys and coronal/sagittal reconstructions perform ed. CT DLP: 968.8 mGycm Automated exposure control for dose reduction was used. FINDINGS: Heart normal size without pericardial effusion. Small hiatal hernia. Lung bases clear without pleural effusion. Liver mildly enlarged at 18.5 cm. No focal liver lesion or biliary ductal dilatation. Portal venous s ystem is patent. Trace thickening at the fundus of the gallbladder may reflect underlying adenomyomatosis. The adrenal glands, kidneys, spleen, and pancreas within normal limits. Mild atelectatic calcifications within the abdominal aorta. No dilated small bowel, free fluid, or free air. Some mottled fluid within the distal ileal loops without any abnormal bowel dilatation. There is irregularity and residual thickening with mucosal hyperemia at the base of the appendix with possible tiny 7 mm residual abscess, axial image 64 and coronal image 38. The remainder of the appen efra is now a more normal caliber. Moderate stool without pericolonic inflammatory change.. Bladder urine distended. Uterus is visualized. Ovaries not well seen. No abnormal fluid collection in the pelvis or pelvic lymphadenopathy. Bones: Degenerative changes at the right SI joint and lower lumbar spine. Endplate spondylosis lower thoracic spine. No osseous destructive process. IMPRESSION: 1. CONTINUED IMPROVEMENT IN THE RIGHT LOWER QUADRANT APPENDICEAL AND PERIAPPENDICEAL INFLAMMATION. TH E INFLAMMATORY FAT STRANDING HAS LARGELY RESOLVED. THERE IS SOME RESIDUAL IRREGULARITY AND SOFT TISSU E THICKENING AT THE BASE OF THE APPENDIX WITH POSSIBLE TINY RESIDUAL 7 MM APPENDICEAL ABSCESS HERE. A XIAL IMAGE 64 AND CORONAL IMAGE 38. THE REMAINDER OF THE APPENDIX SHOWS NORMAL CALIBER. 2. MOTTLED MATERIAL IN THE DISTAL ILEUM WITHOUT ABNORMAL BOWEL DILATATION. FINDINGS COULD REPRESENT S TASIS OR A FIBER FOOD BOLUS. 3. MILD HEPATOMEGALY (18.5 CM).
== END | disposition home or self-care (01) ==
LOC: RADCTMAIN 09:04
PROVIDERS: ATTEND Surgery Plastic and Reconstructive Surgery
DX: K37 Unspecified appendicitis (principal)
CPT/HCPCS: 74177; Q9967

== ENCOUNTER 2018-09-15 10:20 | Day surgery (SDC) | payer OTHER ==
[2018-09-13 14:36] VITALS: BMI 32.8
--- NOTE | 2018-09-15 07:07 | P.GSHP ---
History of Present Illness H&P Date: 09/15/18 CHIEF COMPLAINT: Right lower quadrant abdominal pain HISTORY OF PRESENT ILLNESS: The patient is a previously healthy 63-year-old female who presented more than 6 weeks ago with perforated appendicitis and phlegmon including right lower quadrant abdominal pain. She has been placed on prolonged antibiotics as a result. No she presents for interval appendectomy PAST MEDICAL HISTORY: See list. PAST SURGICAL HISTORY: See list. CURRENT MEDICATIONS: See list. ALLERGIES: See list. SOCIAL HISTORY: Non-tobacco user. FAMILY HISTORY: Denies Crohns disease and ulcerative colitis. REVIEW OF ORGAN SYSTEMS: CONSTITUTIONAL: Denies any fever or chills. Denies recent weight loss. HEENT: Denies any trouble with vision, hearing or nosebleeds. No difficulty swallowing. LYMPHATIC: The patient denies any lumps and bumps around the neck. ENDOCRINE: Denies any thyroid disorders. Denies any blood sugar glucose intolerance. RESPIRATORY: Denies shortness of breath including chronic cough. CARDIOVASCULAR: Denies history of chest pain with exertion. GASTROINTESTINAL: Denies regurgitation of bile at night as well as intermittent nausea. No blood in stools. GENITOURINARY: Denies any blood in urine or increased urinary frequency. Previous history of kidney stones.` MUSCULOSKELETAL: Denies current joint arthritis. NEUROLOGIC: Denies any numbness or tingling along the distal extremities. No seizure disorders or headaches. Past history of concussion. PSYCHIATRIC: Denies any depression or suicidal ideation. HEMATOLOGIC: Denies any abnormal bleeding or bruising. PHYSICAL EXAMINATION: GENERAL: Well developed and in no acute distress. Pleasant. HEENT: No sclera icterus. Extraocular movements grossly intact. Moist buccal mucosa. Head is atraumatic, normocephalic. Hears conversational speech. No nasal drainage. NECK: Supple without lymphadenopathy. No JV distention. CHEST: Non-labored respirations and equal bilateral excursions. CARDIOVASCULAR: Regular rate and rhythm. Palpable 2+ radial pulses. ABDOMEN: Soft, minimally tender at the right lower quadrant MUSCULOSKELETAL: No clubbing, cyanosis or edema. NEUROLOGIC: No focal or lateralizing signs. PSYCH: Appropriate affect. Alert and oriented to person, place and time. SKIN: Well perfused. Good skin turgor. LABS: Reviewed STUDIES: CT of the abdomen and pelvis reviewed with findings consistent with appendicitis. ASSESSMENT: 1. Perforated appendicitis with phlegmon. PLAN: 1. I have discussed benefits and risks of appendectomy. Robotic assisted approach reviewed. 2. Bilateral SCDs. 3. Antibiotics. 4. DVT prophylaxis with heparin. Past Medical History Past Medical History: Hypertension, Thyroid Disorder Additional Past Medical History / Comment(s): APPENDICITIS History of Any Multi-Drug Resistant Organisms: None Reported Past Surgical History: No Surgical Hx Reported Additional Past Surgical History / Comment(s): COLONOSCOPY Past Anesthesia/Blood Transfusion Reactions: Motion Sickness Additional Past Anesthesia/Blood Transfusion Reaction / Comment(s): no hx Smoking Status: Former smoker - Past Family History Mother Additional Family Medical History / Comment(s): past away at 59yr of emphysema Father Additional Family Medical History / Comment(s): of etoh Medications and Allergies Home Medications Medication Instructions Recorded Confirmed Type ALPRAZolam [Xanax] 0.5 mg PO TID PRN 07/27/18 09/13/18 History Levothyroxine Sodium [Synthroid] 50 mcg PO DAILY 07/27/18 09/13/18 History Lisinopril-Hctz 20-25 mg 1 tab PO DAILY 07/27/18 09/13/18 History [Zestoretic 20-25] Omeprazole 20 mg PO DAILY 07/27/18 09/13/18 History Allergies Allergy/AdvReac Type Severity Reaction Status Date / Time No Known Allergies Allergy Verified 09/13/18 14:31
[~2018-09-15 10:20] MED LIST: DEXAMETHASONE SOD PHOSPHATE 10 MG/ML 1 ML VIAL IV ONE; HEPARIN SODIUM,PORCINE 5,000 UNIT/ML 1 ML VIAL SQ ONE; HYDROmorphone 1 MG/ML 1 ML SYRINGE IVP PRN; LACTATED RINGERS 1,000 ML IV SCH; ONDANSETRON 4 MG/2 ML VIAL IVP ONE; ceFAZolin IN SWFI 2 GM/20 ML SYRINGE IVP ONE; fentaNYL (PF) 50 MCG/ML 2 ML AMP IV PRN
[2018-09-15] MEDS ORDERED: LIDOCAINE 1% 20 ML VIAL (10MG/ML) FOR IV START INTRADERMA ONE (11:07)
[2018-09-15] MEDS ORDERED: BUPIVACAIN-EPI 0.25%-1:200,000 30 ML VIAL SQ ONE (12:28)
[2018-09-15] MEDS ORDERED: ePHEDrine SULFATE/0.9% NACL/PF 50 MG/5 ML SYRINGE IV ONE (14:27)
[2018-09-15] MEDS ORDERED: GLYCOPYRROLATE 0.2 MG/ML 2 ML VIAL ONE (14:27)
[2018-09-15] MEDS ORDERED: LIDOCAINE 1% INJ 10MG/ML (20 ML MDV) ONE (14:27)
[2018-09-15] MEDS ORDERED: VECURONIUM 10 MG VIAL IV ONE (14:27)
[2018-09-15] MEDS ORDERED: NEOSTIGMINE 1 MG/ML 10 ML VIAL ONE (14:27)
[2018-09-15] MEDS ORDERED: PROPOFOL 10 MG/ML 20 ML VIAL IV ONE (14:27)
[2018-09-15] MEDS ORDERED: SUCCINYLCHOLINE CHLORIDE 100 MG/5 ML SYR IV ONE (14:27)
[2018-09-15] MEDS ORDERED: PHENYLEPHRINE-0.9% NACL SYG 1 MG/10 ML SYRINGE ONE (14:27)
[2018-09-15] MEDS ORDERED: fentaNYL (PF) 50 MCG/ML 2 ML AMP ONE (14:27)
[2018-09-15] MEDS ORDERED: MIDAZOLAM 2 MG/2 ML VIAL ONE (14:27)
[2018-09-15] MEDS ORDERED: LACTATED RINGERS 1,000 ML IV ONE (14:50)
[2018-09-15 16:21] VITALS: RESP 16; TEMP 98.5
--- NOTE | 2018-09-15 16:51 | P.OP ---
Date of Procedure: 09/15/18 Description of Procedure: SURGEON: GRACIELA RICH MD PREOPERATIVE DIAGNOSES: 1. Previous perforated appendicitis with phlegmon 2. History of appendiceal peritoneal abscess 3. Hypertensive heart disease 4. Generalized anxiety disorder 5. Obesity due to excess calories, BMI 32.8 6. Hypothyroidism 7. Gastroesophageal reflux disease. POSTOPERATIVE DIAGNOSES: 1. Previous perforated appendicitis with phlegmon 2. History of appendiceal peritoneal abscess 3. Hypertensive heart disease 4. Generalized anxiety disorder 5. Obesity due to excess calories, BMI 32.8 6. Hypothyroidism 7. Gastroesophageal reflux disease. 8. Initial right inguinal hernia, indirect 9. Peritoneal adhesions, right lower quadrant OPERATION: 1. Robotic-assisted da Idania Xi laparoscopic extensive lysis of adhesions over 30 minutes 2. Robotic-assisted da Idania Xi laparoscopic appendectomy Anesthesia: GETA, local Estimated Blood Loss (ml): 20 Pathology: other (Appendix) Condition: stable Disposition: same day COMPLICATIONS: None. Operative Findings: 1. Dilated appendix with perforation along the base. 2. Adhesions along the right lower quadrant addressed with lysis of adhesions 3. Imbrication at perforation site using 3-0 Vicryl. 4. Small right indirect inguinal hernia identified without obstruction INDICATIONS: The patient is a 63-year-old female who 6+ weeks ago had a perforated appendicitis with phlegmon. Interval appendectomy was described. Benefits and risks of surgery were thoroughly described. Informed consent was obtained. DESCRIPTION OF PROCEDURE: The patient was brought into the operating room and laid in supine position. After general induction, the abdomen had been prepped and draped in standard sterile fashion. Ioban draping was also placed. Prior to incision, a timeout protocol was confirmed with surgical team regarding the patient's name including procedures to be performed. The robot was primed prior to the procedure. A field block using local anesthetic was placed along hernia site including the proposed port sites. Initial incision was made with a #11 blade along the left upper quadrant. A 0 degree 5 mm laparoscopic trocar entry was performed. Diagnostic laparoscopy demonstrated peritoneal adhesions involving the right lower quadrant. Separately a small indirect right inguinal hernia was identified. Two robotic 8-mm ports were initially placed along the left lateral abdominal wall as the 5-mm port of the left upper quadrant was exchanged. Placements of the ports were 15 cm from the target anatomy and approximately 10 cm apart. The da Idania Xi robot was previously primed, prepped and draped then docked along the left side of the patient. I then sat at the robot Da Idania Xi console where working arms of the robot including needle pedicab driver, robotic stapler vessel sealer and graspers were exchanged by the virtual customer assistant. The patient was repositioned in Trendelenburg position. She had peritoneal adhesions adhesions along the right lower quadrant involving the greater omentum that were addressed with a combination of sharp and blunt dissection for over 30 minutes. Dilated appendix with perforation along the base of the cecum was identified. Adhesions along the right lower quadrant were addressed with lysis of adhesions. The port along the left upper quadrant was exchanged for a 12 mm port for robotic stapler. The base of the appendix was excised using 45-mm white staple load. The perforated site was imbricated using 3-0 Vicryl. A final endoscopic imaging was obtained. All instruments and pneumoperitoneum were evacuated from the abdominal cavity. The da Idania Xi robot was undocked from the patient. I re-scrubbed into the case for closure of incisions. The incisions were reapproximated using 4-0 Monocryl in an interrupted subcuticular fashion. Liquid glue was applied to the skin after cleansing the skin with normal saline and dilute hydrogen peroxide. At the end of the procedure, needle, sponge, and instrument count had been verified correct by [facility]. The patient was taken to the postanesthesia care unit in stable condition. Plan - Discharge Summary Discharge Rx Participant: Yes New Discharge Prescriptions: New Amoxic-Pot Clav 875-125Mg [Augmentin Xr 875-125] 1 each PO Q12HR #10 tablet HYDROcodone/APAP 5-325MG [Banks 5-325] 1 tab PO Q4HR PRN 3 Days #18 tab PRN Reason: Pain Ibuprofen [Motrin] 600 mg PO Q8HR PRN #30 tab PRN Reason: Pain No Action Omeprazole 20 mg PO DAILY Lisinopril-Hctz 20-25 mg [Zestoretic 20-25] 1 tab PO DAILY Levothyroxine Sodium [Synthroid] 50 mcg PO DAILY ALPRAZolam [Xanax] 0.5 mg PO TID PRN PRN Reason: Anxiety Discharge Medication List ALPRAZolam [Xanax] 0.5 mg PO TID PRN 07/27/18 [History] Levothyroxine Sodium [Synthroid] 50 mcg PO DAILY 07/27/18 [History] Lisinopril-Hctz 20-25 mg [Zestoretic 20-25] 1 tab PO DAILY 07/27/18 [History] Omeprazole 20 mg PO DAILY 07/27/18 [History] Amoxic-Pot Clav 875-125Mg [Augmentin Xr 875-125] 1 each PO Q12HR #10 tablet 12/02 [Rx] HYDROcodone/APAP 5-325MG [Banks 5-325] 1 tab PO Q4HR PRN 3 Days #18 tab [Rx] Ibuprofen [Motrin] 600 mg PO Q8HR PRN #30 tab 09/15/18 [Rx] Follow up Appointment(s)/Referral(s): Graciela Rich MD [STAFF PHYSICIAN] - 09/27/18 (call in morning to make appointment for this day you just need a time.) Patient Instructions/Handouts: *Surgery [facility] - (Anesthesia) Discharge Instructions Outpatient Surgery, Laparoscopic Appendectomy (DC) Activity/Diet/Wound Care/Special Instructions: May shower. No bath tub soaks. No lifting over 10 pounds in 2 weeks. Use antibacterial soap. Discharge Disposition: HOME SELF-CARE
[2018-09-15] MEDS ORDERED: HYDROcodone/APAP 5-325MG 1 EACH TAB PO ONE (17:20)
[2018-09-15] MEDS ORDERED: KETOROLAC 30 MG/ML 1 ML VIAL IVP ONE (17:58)
[2018-09-15 17:59] VITALS: BP 109/68; PULSE 89
== END 2018-09-15 18:36 | disposition home or self-care (01) ==
LOC: OR 10:20
PROVIDERS: ATTEND Surgery Plastic and Reconstructive Surgery
DX: K35.33 Acute appendicitis with perforation, localized peritonitis, and gangrene, with abscess (principal); K66.0 Peritoneal adhesions (postprocedural) (postinfection); K40.90 Unilateral inguinal hernia, without obstruction or gangrene, not specified as recurrent; K21.9 Gastro-esophageal reflux disease without esophagitis; I10 Essential (primary) hypertension; E03.9 Hypothyroidism, unspecified; F41.9 Anxiety disorder, unspecified; Z87.891 Personal history of nicotine dependence; Z79.890 Hormone replacement therapy; Z79.899 Other long term (current) drug therapy; E66.09 Other obesity due to excess calories; Z68.32 Body mass index [BMI] 32.0-32.9, adult; I11.9 Hypertensive heart disease without heart failure; F41.1 Generalized anxiety disorder
CPT/HCPCS: 44970; S2900; 88304

== ENCOUNTER 2019-06-14 08:33 | Day surgery (SDC) | payer OTHER ==
[2019-06-09 09:15] VITALS: BMI 31.0
--- NOTE | 2019-06-14 07:25 | P.GSHP ---
History of Present Illness H&P Date: 06/14/19 CHIEF COMPLAINT: Colon screen HISTORY OF PRESENT ILLNESS: The patient is a 64-year-old female who presents for colon screen. Lower endoscopy was offered for further evaluation and management. PAST MEDICAL HISTORY: Please see list. PAST SURGICAL HISTORY: Please see list. MEDICATIONS: Please see list. ALLERGIES: Please see list. SOCIAL HISTORY: No illicit drug use FAMILY HISTORY: No reports of Crohn disease or ulcerative colitis. REVIEW OF ORGAN SYSTEMS: CONSTITUTIONAL: No reports of fevers or chills. PHYSICAL EXAM: VITAL SIGNS: Stable GENERAL: Well-developed pleasant in no acute distress. HEENT: No scleral icterus. Extraocular movements grossly intact. Moist buccal mucosa. NECK: Supple without lymphadenopathy. CHEST: Unlabored respirations. Equal bilateral excursions. CARDIOVASCULAR: Regular rate and rhythm. Distal 2+ pulses. ABDOMEN: Soft, nontender, nondistended. MUSCULOSKELETAL: No clubbing, cyanosis, or edema. ASSESSMENT: 1. Colon screen. PLAN: 1. Recommend proceeding with a lower endoscopy Past Medical History Past Medical History: GERD/Reflux, Hypertension, Thyroid Disorder Additional Past Medical History / Comment(s): CONSTIPATION History of Any Multi-Drug Resistant Organisms: None Reported Past Surgical History: Appendectomy Additional Past Surgical History / Comment(s): COLONOSCOPY Past Anesthesia/Blood Transfusion Reactions: No Reported Reaction, Motion Sickness Additional Past Anesthesia/Blood Transfusion Reaction / Comment(s): . Past Psychological History: Anxiety Additional Psychological History / Comment(s): . Smoking Status: Former smoker Past Alcohol Use History: None Reported Additional Past Alcohol Use History / Comment(s): SMOKED <1 PPD FROM [id number] Past Drug Use History: Marijuana Additional Drug Use History / Comment(s): OCCASIONAL MARIJUANA USE - Past Family History Mother Additional Family Medical History / Comment(s): past away at 59yr of emphysema Father Additional Family Medical History / Comment(s): of etoh Medications and Allergies Home Medications Medication Instructions Recorded Confirmed Type ALPRAZolam [Xanax] 0.5 mg PO TID PRN 07/27/18 06/09/19 History Levothyroxine Sodium [Synthroid] 50 mcg PO DAILY 07/27/18 06/09/19 History Lisinopril-Hctz 20-25 mg 1 tab PO DAILY 07/27/18 06/09/19 History [Zestoretic 20-25] Omeprazole 20 mg PO DAILY 07/27/18 06/09/19 History Allergies Allergy/AdvReac Type Severity Reaction Status Date / Time No Known Allergies Allergy Verified 06/09/19 08:56
[~2019-06-14 08:33] MED LIST changes: -DEXAMETHASONE SOD PHOSPHATE 10 MG/ML 1 ML VIAL IV ONE; -HEPARIN SODIUM,PORCINE 5,000 UNIT/ML 1 ML VIAL SQ ONE; -HYDROmorphone 1 MG/ML 1 ML SYRINGE IVP PRN; +LIDOCAINE 1% 20 ML VIAL (10MG/ML) FOR IV START INTRADERMA PRN; -ONDANSETRON 4 MG/2 ML VIAL IVP ONE; -ceFAZolin IN SWFI 2 GM/20 ML SYRINGE IVP ONE; -fentaNYL (PF) 50 MCG/ML 2 ML AMP IV PRN
[2019-06-14 08:53] VITALS: TEMP 97
[2019-06-14] MEDS ORDERED: PROPOFOL 10 MG/ML 20 ML VIAL IV ONE (10:00)
--- NOTE | 2019-06-14 10:25 | P.PCN ---
Date of Procedure: 06/14/19 Description of Procedure: PREOPERATIVE DIAGNOSIS: Colonoscopy screening. POSTOPERATIVE DIAGNOSIS: Colonoscopy screening. Ascending colon adenoma Sigmoid diverticulosis External hemorrhoids, grade 3 OPERATION: Colonoscopy to the ileocecal valve and appendiceal orifice. Colonoscopy with snare polypectomy ascending colon, specimen removed SURGEON: Graciela Rich MD. ANESTHESIA: MAC. INDICATIONS: The patient is a 64-year-old female who presents for colonoscopy screening. Has colonoscopy over 5 years ago. Benefits and risks were described and informed consent was obtained. DESCRIPTION OF PROCEDURE: The patient had undergone Suprep. She had been brought into the operating room and laid in the left lateral decubitus position. After adequate intravenous sedation, the rectum was examined with 2% lidocaine jelly. External hemorrhoids were encountered. The rectal tone was within normal limits. No lesions were palpated in the rectal vault. An Olympus colonoscope was advanced until the ileocecal valve and appendiceal orifice were clearly viewed. The prep was excellent with clear visualization of the mucosal folds. The scope was removed with visualization of each mucosal fold. Scattered diverticulosis was encountered. Flat ascending colon adenoma 5 mm with snare polypectomy with spec imen removed. No evidence of focal colitis was found. Retroflexion of the scope demonstrated grade 2 internal hemorrhoids without active bleeding or inflammation. The colon was desufflated. The patient had tolerated the procedure well. Withdrawal time was over 6 minutes. FINDINGS: Aronchick preparation quality scale 1 (1-5) Internal hemorrhoids, grade 2 External prolapsed hemorrhoids, grade 3 No arteriovenous malformations. No adenomatous polyps. No focal colitis. Sigmoid diverticulosis RECOMMENDATIONS: Lower endoscopy in 5 years, 2023 Plan - Discharge Summary New Discharge Prescriptions: No Action Omeprazole 20 mg PO DAILY Lisinopril-Hctz 20-25 mg [Zestoretic 20-25] 1 tab PO DAILY Levothyroxine Sodium [Synthroid] 50 mcg PO DAILY ALPRAZolam [Xanax] 0.5 mg PO TID PRN PRN Reason: Anxiety Discharge Medication List ALPRAZolam [Xanax] 0.5 mg PO TID PRN 07/27/18 [History] Levothyroxine Sodium [Synthroid] 50 mcg PO DAILY 07/27/18 [History] Lisinopril-Hctz 20-25 mg [Zestoretic 20-25] 1 tab PO DAILY 07/27/18 [History] Omeprazole 20 mg PO DAILY 07/27/18 [History] Follow up Appointment(s)/Referral(s): Graciela Rich MD [STAFF PHYSICIAN] - As Needed Patient Instructions/Handouts: Colorectal Polyps (DC), Diverticulosis Diet (GEN), Diverticulosis (DC) Activity/Diet/Wound Care/Special Instructions: Repeat colonoscopy 5 years, 2023 Discharge Disposition: HOME SELF-CARE
[2019-06-14 10:44] VITALS: BP 115/74; PULSE 62; RESP 18
== END 2019-06-14 11:06 | disposition home or self-care (01) ==
LOC: ORWHC2ENDO 08:33
PROVIDERS: ATTEND Surgery Plastic and Reconstructive Surgery
DX: D12.2 Benign neoplasm of ascending colon (principal); K57.30 Diverticulosis of large intestine without perforation or abscess without bleeding; K64.2 Third degree hemorrhoids; K64.1 Second degree hemorrhoids; K21.9 Gastro-esophageal reflux disease without esophagitis; I10 Essential (primary) hypertension; E07.9 Disorder of thyroid, unspecified; F41.9 Anxiety disorder, unspecified; Z79.890 Hormone replacement therapy; Z79.899 Other long term (current) drug therapy; Z90.49 Acquired absence of other specified parts of digestive tract; Z87.891 Personal history of nicotine dependence; Z84.89 Family history of other specified conditions; Z83.6 Family history of other diseases of the respiratory system
CPT/HCPCS: 88305; 45385; J2704

== ENCOUNTER → 2019-10-30 | Outpatient (CLI) | payer OTHER ==
--- NOTE | 2019-10-30 08:38 | MR ---
EXAMINATION TYPE: MR knee RT wo con DATE OF EXAM: 10/30/2019 COMPARISON: NONE HISTORY: Right knee pain, effusion, possible lateral meniscal tear all per order. Pain and swelling f or 7 months after twisting injury per patient. TECHNIQUE: Multiplanar, multisequence images of the knee is performed without IV contrast. FINDINGS: MEDIAL MENISCUS: Anterior and posterior horns are intact without tear. LATERAL MENISCUS: Anterior horn shows some oblique increased signal extending to superior articular s urface sagittal image 22. Posterior horn is truncated with abnormal signal extending to inferior elza cular surface consistent with full-thickness tear. CRUCIATE LIGAMENTS: The anterior and posterior cruciate ligaments are intact and unremarkable. COLLATERAL LIGAMENTS: The medial collateral ligament and lateral collateral ligament complex are inta ct and unremarkable. EXTENSOR MECHANISM: Visualized quadriceps and patellar tendons are intact. EFFUSION: There is moderate size suprapatellar joint effusion. POPLITEAL CYST: Moderate size popliteal/regalado cyst measures 5.8 cm long axis sagittal image 8. TRICOMPARTMENT SPACES: Moderate tricompartment joint space loss with mild to moderate spurring latera l tibiofemoral compartment CARTILAGE: Chondromalacia patella is present with thinning of articular cartilage along posterior pat ellar pole. More prominent cartilaginous loss lateral tibial femoral compartment is seen. BONE MARROW SIGNAL: Areas of heterogeneous diminished T1 and increased T2 signal lateral tibiofemoral compartment more prominent involving the tibial plateau measuring 12 mm AP diameter sagittal image 2 2 and 16 mm transversely coronal image 17. OTHER: No additional significant abnormality is appreciated. IMPRESSION: 1. Complex full-thickness tear posterior horn of lateral meniscus. 2. Oblique full-thickness tear anterior horn of lateral meniscus. 3. Moderate to advanced tricompartment degenerative changes most prominent lateral tibial femoral com partment as detailed above. 4. Moderate-sized suprapatellar joint effusion. 5. Moderate to large sized popliteal cyst.
== END | disposition home or self-care (01) ==
LOC: RADMRIMAIN 07:32
PROVIDERS: ATTEND Orthopaedic Surgery Sports Medicine
DX: M17.9 Osteoarthritis of knee, unspecified (principal); S83.271A Complex tear of lateral meniscus, current injury, right knee, initial encounter

== ENCOUNTER → 2019-11-10 | Outpatient (CLI) | payer OTHER ==
[2019-11-10 12:39] LABS: HCT 38.9 % (34.0-46.0); HGB 12.7 gm/dL (11.4-16.0); MCH 31.2 pg (25.0-35.0); MCHC 32.6 g/dL (31.0-37.0); MCV 95.7 fL (80.0-100.0); Mean Platelet Volume 6.7; Platelet Count 261 k/uL (150-450); RBC 4.06 m/uL (3.80-5.40); RDW 12.8 % (11.5-15.5); WBC 6.6 k/uL (3.8-10.6)
== END | disposition home or self-care (01) ==
LOC: LABWHC1 12:05
PROVIDERS: ATTEND Family Medicine
DX: Z01.818 Encounter for other preprocedural examination (principal); Z01.812 Encounter for preprocedural laboratory examination
CPT/HCPCS: 36415; 85027; 93005

== ENCOUNTER 2024-10-24 08:19 | Day surgery (SDC) | payer MEDICARE, OTHER ==
[2024-10-20 09:04] VITALS: BMI 31.7
[~2024-10-24 08:19] MED LIST changes: -LIDOCAINE 1% 20 ML VIAL (10MG/ML) FOR IV START INTRADERMA PRN
[2024-10-24] MEDS: IV FLUID CONTINUATION 1,000 ML IV ONE (08:50)
[2024-10-24 08:55] VITALS: RESP 16; TEMP 98
[2024-10-24] MEDS ORDERED: PROPOFOL 10 MG/ML 20 ML VIAL IV ONE (09:53)
[2024-10-24] MEDS ORDERED: LIDOCAINE 1% INJ 10MG/ML (20 ML MDV) ONE (09:53)
--- NOTE | 2024-10-24 10:10 | P.PCN ---
Date of Procedure: 10/24/24 Procedure(s) Performed: BRIEF HISTORY: Patient is a 69-year-old pleasant white female scheduled for an elective colonoscopy as a part of screening for colon cancer. PROCEDURE PERFORMED: Colonoscopy with biopsy. PREOPERATIVE DIAGNOSIS: Screening for colon cancer. IV sedation per Anesthesia. PROCEDURE: After informed consent was obtained, the patient, was brought into the endoscopy unit. IV sedation was administered by Anesthesia under continuous monitoring. Digital rectal examination was normal. Initially the Olympus CF-160 flexible video colonoscope was then inserted in the rectum, gradually advanced into the cecum without any difficulty. Careful examination was performed as the scope was gradually being withdrawn. Ileocecal valve and the appendiceal orifice were visualized and appeared normal. Prep was excellent. Mucosa of the cecum, ascending colon appeared normal. The hepatic flexure there was a 4 mm sessile polyp removed by cold biopsy., Rest of the transverse colon, descending colon, sigmoid colon, and rectum appeared normal. Scattered sigmoid diverticulosis. Retroflexion was performed in the rectum and no lesions were seen. The patient tolerated the procedure well. IMPRESSION: 4 mm hepatic flexure polyp status post cold biopsy Scattered sigmoid diverticulosis RECOMMENDATIONS: Findings of this examination were discussed with the patient as well as her family. She was advised to follow-up with the biopsy results. If the biopsy reveals adenoma she can have repeat colonoscopy in 5 years..
[2024-10-24 10:41] VITALS: BP 134/78; PULSE 65
== END 2024-10-24 10:57 | disposition home or self-care (01) ==
LOC: ORWHC2ENDO 08:19
PROVIDERS: ATTEND Internal Medicine Gastroenterology
DX: Z12.11 Encounter for screening for malignant neoplasm of colon (principal); D12.3 Benign neoplasm of transverse colon; K57.30 Diverticulosis of large intestine without perforation or abscess without bleeding; I10 Essential (primary) hypertension; E07.9 Disorder of thyroid, unspecified; K21.9 Gastro-esophageal reflux disease without esophagitis; F41.9 Anxiety disorder, unspecified; Z79.890 Hormone replacement therapy; Z79.899 Other long term (current) drug therapy; Z96.653 Presence of artificial knee joint, bilateral
CPT/HCPCS: 88305; 45380; J2003; J2704